=== PATIENT | female | born 1950 | race Caucasian/White ===

== ENCOUNTER 2017-12-20 09:31 | Emergency (ER) | payer MEDICARE, OTHER ==
[~2017-12-20] VITALS: Ht 162.6 cm; Wt 89.0 kg
[2017-12-20] MEDS: KETOROLAC 60MG/2ML VIAL IM ONE ×2 (11:45→11:49)
[2017-12-20 12:22] VITALS: BP 129/59
== END 2017-12-20 12:23 | disposition home or self-care (01) ==
LOC: ER 10:08
DX: R51 Headache (principal); Z88.0 Allergy status to penicillin
CPT/HCPCS: 70450; 96372; 99284; J1885